=== PATIENT | female | born 1995 | race Caucasian/White ===

== ENCOUNTER 2018-04-27 21:32 | Emergency (ER) | payer OTHER, BC ==
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
[2018-04-27 22:17] VITALS: BP 132/79
== END 2018-04-27 22:36 | disposition home or self-care (01) ==
DX: F07.81 Postconcussional syndrome (principal)